=== PATIENT | female | born 2000 | race American Indian/Alaskan Native ===

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

== ENCOUNTER 2022-05-16 17:01 | Emergency (ER) | payer MEDICAID ==
[2022-05-16] MEDS ORDERED: levETIRAcetam 1000 MG/NS 0.75% 1,000 MG/100 ML BAG IV ONE (17:32)
[2022-05-16] MEDS ORDERED: KETOROLAC 30 MG/1 ML INJ IV ONE (17:34)
--- NOTE | 2022-05-16 17:35 | Emergency Department Report ---
ED Seizure HPI - General Chief Complaint: Seizure Stated Complaint: SEIZURE Time Seen by Provider: 05/16/22 17:24 Source: EMS Mode of arrival: Stretcher Limitations: No Limitations - History of Present Illness Initial Comments: 22-year-old female with a past medical history of seizures, developmental delay, and mood disorder since February 2022 presents to the hospital after having a seizure. Patient states she was cleaning the floor when she felt lightheaded and then has subsequent seizure activity. She denies tongue biting and complains of possible urinary incontinence. 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 Patient was prescribed Keppra after her initial seizures. She is noncompliant with the medication because it makes her feel drowsy. She has her first neurology appointment scheduled in 3 days on the . Patient denies taking any other medications currently, denies alcohol and substance abuse. - Related Data Previous Rx's Medication Instructions Recorded Last Taken Type Ferrous Sulfate [Ferrous Sulfate 324 mg PO DAILY #30 tab 05/16/22 Unknown Rx 324 MG] Allergies Allergy/AdvReac Type Severity Reaction Status Date / Time amoxicillin Allergy Hives Verified 08/16/19 15:36 ED Review of Systems ROS: Stated complaint: SEIZURE Other details as noted in HPI Comment: All other systems reviewed and negative ED Past Medical Hx - Past Medical History Previous Medical History?: Yes Hx Seizures: Yes - Surgical History Past Surgical History?: No Additional Surgical History: glass removed out of thigh - Social History Smoking Status: Never Smoker Substance Use Type: None - Medications Home Medications: Home Medications Medication Instructions Recorded Confirmed Last Taken Type Ferrous Sulfate [Ferrous Sulfate 324 mg PO DAILY #30 tab 05/16/22 Unknown Rx 324 MG] ED Physical Exam - General Limitations: No Limitations - Other Other exam information: General: No acute distress Head: Atraumatic Eyes: normal appearance ENT: Moist mucous membranes Neck: Normal appearance, no midline tenderness Chest: Clear to auscultation bilaterally CV: Regular rate and rhythm Abdomen: Soft, normal bowel sounds, nontender, nondistended, no rebound or guarding Back: Normal inspection Extremity: Normal inspection, full range of motion Neuro: Alert O x 3, no facial asymmetry, speech clear, no gross motor sensory deficit Psych: Appropriate behavior Skin: No rash ED Course Vital Signs 05/16/22 05/16/22 05/16/22 17:17 18:06 18:14 Temperature 98.6 F Pulse Rate 85 Respiratory 18 Rate Blood Pressure 104/52 [Left] O2 Sat by Pulse 99 96 Oximetry 05/16/22 18:52 Temperature Pulse Rate 56 L Respiratory 16 Rate Blood Pressure 83/43 [Left] O2 Sat by Pulse 100 Oximetry - Reevaluation(s) Reevaluation #1: 05/16/22 20:02 Patient states she is ready to go home. Able to ambulate without lightheadedness or dizziness. Patient did have mild hypotension which improved after normal saline. BP currently 107/58, heart rate 74, room air saturation 96%. Patient will be discharged as requested. ED Medical Decision Making - Lab Data Result diagrams: 05/16/22 17:37 05/16/22 17:37 Lab Results 05/16/22 05/16/22 05/16/22 Range/Units 17:37 17:37 17:37 WBC 8.2 (4.5-11.0) K/mm3 RBC 3.62 L (3.65-5.03) M/mm3 Hgb 8.1 L (10.1-14.3) gm/dl Hct 26.3 L (30.3-42.9) % MCV 73 L (79-97) fl MCH 22 L (28-32) pg MCHC 31 (30-34) % RDW 18.7 H (13.2-15.2) % Plt Count 330 (140-440) K/mm3 Lymph % (Auto) 15.5 (13.4-35.0) % Geary % (Auto) 5.8 (0.0-7.3) % Eos % (Auto) 0.5 (0.0-4.3) % Baso % (Auto) 0.3 (0.0-1.8) % Lymph # (Auto) 1.3 (1.2-5.4) K/mm3 Geary # (Auto) 0.5 (0.0-0.8) K/mm3 Eos # (Auto) 0.0 (0.0-0.4) K/mm3 Baso # (Auto) 0.0 (0.0-0.1) K/mm3 Seg Neutrophils % 77.9 H (40.0-70.0) % Seg Neutrophils # 6.4 (1.8-7.7) K/mm3 Sodium 143 (137-145) mmol/L Potassium 4.0 (3.6-5.0) mmol/L Chloride 107.2 H (98-107) mmol/L Carbon Dioxide 26 (22-30) mmol/L Anion Gap 14 mmol/L BUN 8 (7-17) mg/dL Creatinine 0.7 (0.6-1.2) mg/dL Estimated GFR > 60 ml/min BUN/Creatinine Ratio 11 % Glucose 91 (65-100) mg/dL POC Glucose (70-105) mg/dL Calcium 9.3 (8.4-10.2) mg/dL Magnesium 1.80 (1.7-2.3) mg/dL HCG, Qual Negative (Negative) 05/16/22 Range/Units 18:16 WBC (4.5-11.0) K/mm3 RBC (3.65-5.03) M/mm3 Hgb (10.1-14.3) gm/dl Hct (30.3-42.9) % MCV (79-97) fl MCH (28-32) pg MCHC (30-34) % RDW (13.2-15.2) % Plt Count (140-440) K/mm3 Lymph % (Auto) (13.4-35.0) % Geary % (Auto) (0.0-7.3) % Eos % (Auto) (0.0-4.3) % Baso % (Auto) (0.0-1.8) % Lymph # (Auto) (1.2-5.4) K/mm3 Geary # (Auto) (0.0-0.8) K/mm3 Eos # (Auto) (0.0-0.4) K/mm3 Baso # (Auto) (0.0-0.1) K/mm3 Seg Neutrophils % (40.0-70.0) % Seg Neutrophils # (1.8-7.7) K/mm3 Sodium (137-145) mmol/L Potassium (3.6-5.0) mmol/L Chloride (98-107) mmol/L Carbon Dioxide (22-30) mmol/L Anion Gap mmol/L BUN (7-17) mg/dL Creatinine (0.6-1.2) mg/dL Estimated GFR ml/min BUN/Creatinine Ratio % Glucose (65-100) mg/dL POC Glucose 83 (70-105) mg/dL Calcium (8.4-10.2) mg/dL Magnesium (1.7-2.3) mg/dL HCG, Qual (Negative) - EKG Data -: EKG Interpreted by Me EKG shows normal: sinus rhythm, intervals (QTC 396), QRS complexes (QRS duration 79), ST-T waves (No STEMI) Rate: bradycardia (58) - Medical Decision Making 22-year-old female presents to the hospital status postseizure. Noncompliant with seizure medications. Patient does have adequate seizure medication at home. ED work-up including labs and EKG are unremarkable with exception of mild anemia. Mild hypotension noted but improved with IV fluids. She has a scheduled outpatient follow-up with neurology next week.. Iron tablets will be prescribed for microcytic anemia Critical Care Time: No Critical care attestation.: If time is entered above; I have spent that time in minutes in the direct care of this critically ill patient, excluding procedure time. ED Disposition Clinical Impression: Seizure, Hx of medication noncompliance, Microcytic anemia Disposition: 01 HOME / SELF CARE / HOMELESS Is pt being admited?: No Does the pt Need Aspirin: No Condition: Stable Instructions: Seizure, Adult, Preventing Iron Deficiency Anemia, Adult Additional Instructions: Take the medication as prescribed. Follow-up with your doctor or doctor/clinic provided. Return if symptoms worsen as indicated by your discharge instructions. Continue your seizure medication Prescriptions: Ferrous Sulfate [Ferrous Sulfate 324 MG] 324 mg PO DAILY #30 tab Referrals: [facility] [Provider Group] - 3-5 Days ROSY GARZA MD [Staff Physician] - 3-5 Days Time of Disposition: 20:06
[2022-05-16 18:09] LABS: Basophils % (Auto) 0.3 % (0.0-1.8); Eosinophils % (Auto) 0.5 % (0.0-4.3); Hematocrit 26.3 % (30.3-42.9); Hemoglobin 8.1 gm/dl (10.1-14.3); Lymphocytes # (Auto) 1.3 K/mm3 (1.2-5.4); Lymphocytes % (Auto) 15.5 % (13.4-35.0); Mean Corpuscular HGB Conc 31 % (30-34); Mean Corpuscular Volume 73 fl (79-97); Monocytes # (Auto) 0.5 K/mm3 (0.0-0.8); Monocytes % (Auto) 5.8 % (0.0-7.3); Platelet Count 330 K/mm3 (140-440); Red Blood Count 3.62 M/mm3 (3.65-5.03); Red Cell Distribution Width 18.7 % (13.2-15.2)
[2022-05-16 18:33] LABS: Blood Urea Nitrogen 8 mg/dL (7-17); Calcium 9.3 mg/dL (8.4-10.2); Hemolysis Index 0
[2022-05-16] MEDS ORDERED: SODIUM CHLORIDE 0.9% 1000 ML 1,000 ML ONE (18:52)
[2022-05-16 18:53] VITALS: BP 83/43
[2022-05-16] MEDS ORDERED: SODIUM CHLORIDE 0.9% 1000 ML 1,000 ML IV ONE (18:57)
[2022-05-16 18:58] LABS: BUN/Creatinine Ratio 11
[2022-05-16 20:47] LABS: Amphetamine Screen,Urine PRESUMPTIVE NEGATIVE; Benzodiazepines Screen,Urine PRESUMPTIVE NEGATIVE; Cannabinoid Screen,Urine PRESUMPTIVE POSITIVE; Cocaine Screen,Urine PRESUMPTIVE NEGATIVE; Methadone Screen,Urine PRESUMPTIVE NEGATIVE; Opiate Screen,Urine PRESUMPTIVE NEGATIVE
--- NOTE | 2022-05-18 10:41 | Electrocardiograph Report ---
[facility] Test Date: 2022-05-16 Test Time: 18:20:31 Pat Name: MIGUEL ANGEL COHEN Department: Room: Gender: F General Manager In Training: CONSUELO : 2000 Requested By: PAUL CASSIDY Order Number: [id number] Reading MD: Yesenia Coulter Measurements Intervals [place] Rate: 58 P: 32 UT: 154 QRS: 79 QRSD: 79 T: 31 QT: 401 QTc: 396 Interpretive Statements Sinus rhythm No previous ECG available for comparison Electronically Signed On 05-18-2022 10:41:13 EDT by Yesenia Coulter
== END 2022-05-16 20:50 | disposition home or self-care (01) ==
LOC: ED 17:01
DX: R56.9 Unspecified convulsions (principal); Z91.14 Patient's other noncompliance with medication regimen; D50.9 Iron deficiency anemia, unspecified; Z98.890 Other specified postprocedural states; Z88.1 Allergy status to other antibiotic agents
CPT/HCPCS: 36415; 80048; 80307; 82962; 83735; 84703; 85025; 93005; 96361; 96374; 96375; 99284; J1885; J1953; J7030

== ENCOUNTER 2022-06-20 11:07 | Emergency (ER) | payer MEDICAID | END 2022-06-21 07:58 | disposition left against medical advice (07) | LOC: ED 11:07 | DX: J03.90 Acute tonsillitis, unspecified (principal); Z53.21 Procedure and treatment not carried out due to patient leaving prior to being seen by health care provider ==

== ENCOUNTER 2022-06-20 19:19 | Inpatient (IN) | payer MEDICAID ==
[2022-06-20] MEDS ORDERED: ACETAMINOPHEN 325 MG/10.15 ML ORAL LIQD UNIT DOSE PO ONE (20:30)
[2022-06-20] MEDS ORDERED: levETIRAcetam 1000 MG/NS 0.75% 1,000 MG/100 ML BAG IV ONE (20:30)
--- NOTE | 2022-06-20 20:33 | Event Note ---
Date: 06/20/22 Medical screening examination note: 22-year-old female with history of possible developmental delay and possible seizure, presents to the department today with a complaint of sore throat, not eating or drinking much, and possibly losing consciousness while preparing food. She does not know she is . She is awake, phonating in complete sentences, without stridor. She is tachycardic and hemodynamically stable. She is moving 4 extremities. She reports that she vapes, and recently had a urine drug screen which is positive for marijuana. Check EKG, appropriate laboratory studies, rapid strep, treat supportively and symptomatically, obtain noncontrast CT scan of the brain for fall, closed head injury, and probable concussion. Detailed history and physical to be performed by oncoming provider Vital Signs 06/20/22 06/20/22 06/20/22 19:20 20:13 20:18 Temperature 98.2 F 103.1 F H Pulse Rate 124 H 130 H Respiratory 18 16 Rate Blood Pressure 127/89 Blood Pressure 116/68 [Left] O2 Sat by Pulse 99 97 98 Oximetry
[2022-06-20] MEDS ORDERED: SODIUM CHLORIDE 0.9% 1000 ML 1,000 ML IV ONE ×2 (20:42→21:02)
[2022-06-20] MEDS ORDERED: KETOROLAC 30 MG/1 ML INJ IV ONE (21:02)
[2022-06-20] MEDS ORDERED: CLINDAMYCIN 600 MG/50 mL 600 MG/50 ML BAG IV ONE (21:03)
[2022-06-20 21:23] LABS: Hematocrit 26.3 % (30.3-42.9); Mean Corpuscular HGB Conc 30 % (30-34); Mean Corpuscular Volume 72 fl (79-97); Platelet Count 267 K/mm3 (140-440); Red Blood Count 3.64 M/mm3 (3.65-5.03); Red Cell Distribution Width 18.3 % (13.2-15.2)
[2022-06-20 21:37] LABS: INR 1.09 (0.87-1.13)
[2022-06-20 21:43] LABS: Blood Urea Nitrogen 7 mg/dL (7-17); Calcium 8.8 mg/dL (8.4-10.2); Hemolysis Index 144
[2022-06-20 21:44] LABS: BUN/Creatinine Ratio 14
--- NOTE | 2022-06-20 21:52 | Cat Scan Report ---
CT HEAD WITHOUT CONTRAST INDICATION / CLINICAL INFORMATION: Closed head injury, concussion. TECHNIQUE: All CT scans at this location are performed using CT dose reduction for ALARA by means of automated exposure control. COMPARISON: CT dated 01/14/19 FINDINGS: HEMORRHAGE: None. EXTRA-AXIAL SPACES: Normal in size and morphology for the patient's age. VENTRICULAR SYSTEM: Normal in size and morphology for the patient's age. CEREBRAL PARENCHYMA: No significant abnormality. No acute territorial infarct. MIDLINE SHIFT / HERNIATION: None. CEREBELLUM / BRAINSTEM: No significant abnormality. ORBITS: Normal as visualized. SOFT TISSUES: No significant abnormality. SKULL: No significant abnormality. PARANASAL SINUSES / MASTOID AIR CELLS: Normal as visualized. ADDITIONAL FINDINGS: None. IMPRESSION: 1. No acute intracranial abnormality. Signer Name: Galen Busch MD Signed: 06/20/2022 9:48 PM Workstation Name: [id number]
[2022-06-20 22:01] LABS: HCG,Quantitative < 2 mIU/mL (0-4)
[2022-06-20] MEDS ORDERED: dexAMETHasone 20 MG/5 ML VIAL IV ONE (23:10)
--- NOTE | 2022-06-20 23:23 | Cat Scan Report ---
CT NECK WITH CONTRAST INDICATION: throat pain, infection COMPARISON: CT head without contrast performed today and on 01/14/2019. TECHNIQUE: Axial, coronal and sagittal CT imaging was performed through the neck after injection of 1 00 cc Omnipaque [address] scans at this location are performed using CT dose reduction for ALARA by means of automated exposure control. FINDINGS: Skull Base: No significant abnormality. Nasopharynx, oropharynx, hypopharynx: The tonsils are enlarged with mild mass effect on the oropharyn x. No other significant abnormality. Tonsils: The tonsils are enlarged with mild mass effect on the oropharynx. There is an area of decrea sed attenuation within the right tonsil measuring 2.1 x 2.1 cm that could represent an evolving absce ss on image 36 of series 2. Airway: Patent and without significant abnormality. Salivary glands: No significant abnormality. Thyroid:No significant abnormality. Lymphatics: No lymphadenopathy. Vasculature: No significant abnormality. Osseous Structures: No significant abnormality Additional findings: None. IMPRESSION: CT evidence of tonsillitis with a possible evolving right tonsillar abscess. Signer Name: Jorge Connor MD Signed: 06/20/2022 11:19 PM Workstation Name: [id number]
--- NOTE | 2022-06-20 23:56 | Emergency Department Report ---
ED ENT HPI - General Chief complaint: Syncope Stated complaint: LIGHT HEADED Time Seen by Provider: 06/20/22 20:38 Source: patient, EMS Mode of arrival: Stretcher Limitations: No Limitations - History of Present Illness Initial comments: 22-year-old female presents to the hospital with syncopal episode and sore throat and fever for the last 3 days with decreased p.o. intake. Patient also planes of headache for several days that started prior to head injury with syncopal episode. She denies posterior neck pain, chest pain, nausea, vomiting, abdominal pain, or difficulty swallowing secretions. Pain is constant, moderate to severe in intensity and worse with swallowing. No alleviating factors reported. Patient presents febrile and tachycardic - Related Data Previous Rx's Medication Instructions Recorded Last Taken Type Ferrous Sulfate [Ferrous Sulfate 324 mg PO DAILY #30 tab 05/16/22 Unknown Rx 324 MG] Allergies Allergy/AdvReac Type Severity Reaction Status Date / Time amoxicillin Allergy Hives Verified 08/16/19 15:36 ED Dental HPI - General Chief complaint: Syncope Stated complaint: LIGHT HEADED Time Seen by Provider: 06/20/22 20:38 Source: patient, EMS Mode of arrival: Stretcher Limitations: No Limitations - Related Data Previous Rx's Medication Instructions Recorded Last Taken Type Ferrous Sulfate [Ferrous Sulfate 324 mg PO DAILY #30 tab 05/16/22 Unknown Rx 324 MG] Allergies Allergy/AdvReac Type Severity Reaction Status Date / Time amoxicillin Allergy Hives Verified 08/16/19 15:36 ED Review of Systems ROS: Stated complaint: LIGHT HEADED Other details as noted in HPI Comment: All other systems reviewed and negative ED Past Medical Hx - Past Medical History Previous Medical History?: Yes Hx Seizures: Yes Additional medical history: childbirth - Surgical History Past Surgical History?: Yes Additional Surgical History: glass removed out of thigh - Social History Smoking Status: Never Smoker Substance Use Type: None - Medications Home Medications: Home Medications Medication Instructions Recorded Confirmed Last Taken Type Ferrous Sulfate [Ferrous Sulfate 324 mg PO DAILY #30 tab 05/16/22 Unknown Rx 324 MG] ED Physical Exam - General Limitations: No Limitations - Other Other exam information: General: No acute distress Head: Atraumatic Eyes: normal appearance ENT: Dry mucous membranes, bilateral tonsillar edema with exudates noted on right tonsil Neck: Normal appearance, no midline tenderness, no stridor or drooling Chest: Clear to auscultation bilaterally CV: Tachycardic regular rhythm Abdomen: Soft, normal bowel sounds, nontender, nondistended, no rebound or guarding Back: Normal inspection Extremity: Normal inspection, full range of motion Neuro: Alert O x 3, no facial asymmetry, speech clear, no gross motor sensory deficit Psych: Appropriate behavior Skin: No rash ED Course Vital Signs 06/20/22 06/20/22 06/20/22 19:20 20:13 20:17 Temperature 98.2 F 103.1 F H Pulse Rate 124 H 130 H 134 H Respiratory 18 16 29 H Rate Blood Pressure 127/89 Blood Pressure 116/68 [Left] O2 Sat by Pulse 99 97 100 Oximetry 06/20/22 06/20/22 06/20/22 20:18 20:30 20:46 Temperature Pulse Rate 129 H 133 H Respiratory 32 H 16 Rate Blood Pressure 112/66 112/66 Blood Pressure [Left] O2 Sat by Pulse 98 100 Oximetry 06/20/22 06/20/22 06/20/22 21:00 21:15 21:40 Temperature Pulse Rate 136 H 127 H 127 H Respiratory 19 24 27 H Rate Blood Pressure 107/65 113/57 Blood Pressure [Left] O2 Sat by Pulse 99 99 99 Oximetry 06/20/22 06/20/22 06/20/22 21:46 22:00 22:16 Temperature Pulse Rate 124 H 116 H 113 H Respiratory Rate Blood Pressure Blood Pressure [Left] O2 Sat by Pulse 99 100 100 Oximetry 06/20/22 06/20/22 06/20/22 22:30 22:39 22:45 Temperature 98.9 F Pulse Rate 110 H 103 H Respiratory Rate Blood Pressure 113/57 92/41 Blood Pressure [Left] O2 Sat by Pulse 100 98 Oximetry 06/20/22 23:32 Temperature Pulse Rate 88 Respiratory 16 Rate Blood Pressure Blood Pressure 91/48 [Left] O2 Sat by Pulse 99 Oximetry - Consultations Consultation #1: 06/20/22 23:[address] Billy ENT doctor operations representative with [facility]. He was able to revi ew patient's images and thinks that area in question is likely secondary to a phlegmon since it lacks ring enhancement of a definitive abscess. Recommends IV antibiotics, Decadron, with expected improvement in 24 to 36 hours. He does not recommend transfer and aspiration at this time. If symptoms worsen or abscess develops patient may require transfer at that time. Patient will be admitted here for treatment. ED Medical Decision Making - Lab Data Result diagrams: 06/20/22 20:49 06/20/22 20:49 Lab Results 06/20/22 06/20/22 06/20/22 Range/Units 20:49 20:49 20:49 WBC 13.1 H (4.5-11.0) K/mm3 RBC 3.64 L (3.65-5.03) M/mm3 Hgb 8.0 L (10.1-14.3) gm/dl Hct 26.3 L (30.3-42.9) % MCV 72 L (79-97) fl MCH 22 L (28-32) pg MCHC 30 (30-34) % RDW 18.3 H (13.2-15.2) % Plt Count 267 (140-440) K/mm3 PT (12.2-14.9) Sec. INR (0.87-1.13) Sodium 133 L (137-145) mmol/L Potassium 4.7 (3.6-5.0) mmol/L Chloride 99.5 (98-107) mmol/L Carbon Dioxide 22 (22-30) mmol/L Anion Gap 16 mmol/L BUN 7 (7-17) mg/dL Creatinine 0.5 L (0.6-1.2) mg/dL Estimated GFR > 60 ml/min BUN/Creatinine Ratio 14 % Glucose 80 (65-100) mg/dL Calcium 8.8 (8.4-10.2) mg/dL TSH 0.508 (0.270-4.200) mlU/mL Free T4 0.90 (0.76-1.46) ng/dL HCG, Quant < 2 (0-4) mIU/mL Plasma/Serum Alcohol (0-0.07) % 06/20/22 06/20/22 Range/Units 20:49 20:49 WBC (4.5-11.0) K/mm3 RBC (3.65-5.03) M/mm3 Hgb (10.1-14.3) gm/dl Hct (30.3-42.9) % MCV (79-97) fl MCH (28-32) pg MCHC (30-34) % RDW (13.2-15.2) % Plt Count (140-440) K/mm3 PT 15.3 H (12.2-14.9) Sec. INR 1.09 (0.87-1.13) Sodium (137-145) mmol/L Potassium (3.6-5.0) mmol/L Chloride (98-107) mmol/L Carbon Dioxide (22-30) mmol/L Anion Gap mmol/L BUN (7-17) mg/dL Creatinine (0.6-1.2) mg/dL Estimated GFR ml/min BUN/Creatinine Ratio % Glucose (65-100) mg/dL Calcium (8.4-10.2) mg/dL TSH (0.270-4.200) mlU/mL Free T4 (0.76-1.46) ng/dL HCG, Quant (0-4) mIU/mL Plasma/Serum Alcohol < 0.01 (0-0.07) % - EKG Data -: EKG Interpreted by Nh EKG shows normal: sinus rhythm, ST-T waves (no stemi) Rate: normal (97) - Radiology Data Radiology results: report reviewed CT HEAD WITHOUT CONTRAST INDICATION / CLINICAL INFORMATION: Closed head injury, concussion. TECHNIQUE: All CT scans at this location are performed using CT dose reduction for [employer] by means of automated exposure control. COMPARISON: CT dated 01/14/19 FINDINGS: HEMORRHAGE: None. EXTRA-AXIAL SPACES: Normal in size and morphology for the patient's age. VENTRICULAR SYSTEM: Normal in size and morphology for the patient's age. CEREBRAL PARENCHYMA: No significant abnormality. No acute territorial infarct. MIDLINE SHIFT / HERNIATION: None. CEREBELLUM / BRAINSTEM: No significant abnormality. ORBITS: Normal as visualized. SOFT TISSUES: No significant abnormality. SKULL: No significant abnormality. PARANASAL SINUSES / MASTOID AIR CELLS: Normal as visualized. ADDITIONAL FINDINGS: None. IMPRESSION: 1. No acute intracranial abnormality. CT NECK WITH CONTRAST INDICATION: throat pain, infection COMPARISON: CT head without contrast performed today and on 01/14/2019. TECHNIQUE: Axial, coronal and sagittal CT imaging was performed through the neck after injection of 100 cc Omnipaque [address] scans at this location are performed using CT dose reduction for ALARA by means of automated exposure control. FINDINGS: Skull Base: No significant abnormality. Nasopharynx, oropharynx, hypopharynx: The tonsils are enlarged with mild mass effect on the oropharynx. No other significant abnormality. Tonsils: The tonsils are enlarged with mild mass effect on the oropharynx. There is an area of decreased attenuation within the right tonsil measuring 2.1 x 2.1 cm that could represent an evolving abscess on image 36 of series 2. Airway: Patent and without significant abnormality. Salivary glands: No significant abnormality. Thyroid:No significant abnormality. Lymphatics: No lymphadenopathy. Vasculature: No significant abnormality. Osseous Structures: No significant abnormality Additional findings: None. IMPRESSION: CT evidence of tonsillitis with a possible evolving right tonsillar abscess. - Medical Decision Making 22-year-old female presents to the hospital syncopal episode likely secondary to poor p.o. intake due to throat pain secondary to tonsillitis with early abscess/phlegmon. Patient's tachycardia improved with IV normal saline. Patient received clindamycin, Decadron, Tylenol, and Toradol in the ED with improvement in symptoms. Case discussed with ENT doctor on-call at [facility] with recommendation for admission for IV antibiotics and steroids with continued IV hydration. Does not recommend transfer and needle aspiration at this time due to lack of definitive abscess. Patient is also noted to be anemic with hemoglobin of 8 at this time. EKG and CT head unremarkable. No airway compromise identified on CAT scan and patient is able to swallow (although painful) and handle secretions. patient will be admitted to the hospital service for further treatment Critical Care Time: No Critical care attestation.: If time is entered above; I have spent that time in minutes in the direct care of this critically ill patient, excluding procedure time. ED Disposition Clinical Impression: Acute infective tonsillitis, Tonsillitis, phlegmonous, Dehydration, Syncope Disposition: ADMITTED INPATIENT Is pt being admited?: Yes Condition: Stable Instructions: Syncope (ED) Time of Disposition: 00:00 (DR becker/hosptialist)
[2022-06-21] MEDS ORDERED: SODIUM CHLORIDE 0.9% 1000 ML 1,000 ML IV ONE (00:01)
[2022-06-21] MEDS ORDERED: MORPHINE 4 MG/1 ML INJ IV PRN (04:20)
[2022-06-21] MEDS ORDERED: ALBUTEROL 2.5 MG/3 ML NEBU IH PRN (04:20)
[2022-06-21] MEDS ORDERED: ACETAMINOPHEN 325 MG TAB PO PRN (04:20)
[2022-06-21] MEDS ORDERED: ONDANSETRON 4 MG/2 ML INJ IV PRN (04:20)
[2022-06-21] MEDS ORDERED: MORPHINE 2 MG/1 ML INJ IV PRN (04:20)
[2022-06-21] MEDS ORDERED: AZITHROMYCIN/NS 500 MG/250 ML 500 MG/250 ML BAG IV SCH (04:23)
--- NOTE | 2022-06-21 04:29 | History and Physical Report ---
History of Present Illness Date of examination: 06/21/22 Date of admission: 06/21/22 Chief complaint: Syncope History of present illness: 22-year-old female presents to the hospital with syncopal episode and sore throat and fever for the last 3 days with decreased p.o. intake. Patient also planes of headache for several days that started prior to head injury with syncopal episode. She denies posterior neck pain, chest pain, nausea, vomiting, abdominal pain, or difficulty swallowing secretions. Pain is constant, moderate to severe in intensity and worse with swallowing. No alleviating factors reported. Patient presents febrile and tachycardic In the emergency room CT scan of the neck shows evidence of tonsillitis with a possible developing right tonsillar abscess. Subsequently ER doctor Case discussed with Dr. Billy ENT doctor campus receptionist with [place]. He was able to review patient's images and thinks that area in question is likely secondary to a phlegmon since it lacks ring enhancement of a definitive abscess. Recommends IV antibiotics, Decadron, with expected improvement in 24 to 36 hours. He does not recommend transfer and aspiration at this time. If symptoms worsen or abscess develops patient may require transfer at that time. Patient will be admitted here for treatment. Past History Past Medical History: seizures, other (Childbirth) Past Surgical History: Other (glass removed out of thigh) Social history: no significant social history Medications and Allergies Allergies Allergy/AdvReac Type Severity Reaction Status Date / Time amoxicillin Allergy Hives Verified 08/16/19 15:36 Home Medications Medication Instructions Recorded Confirmed Last Taken Type Ferrous Sulfate [Ferrous Sulfate 324 mg PO DAILY #30 tab 05/16/22 Unknown Rx 324 MG] Active Meds: Active Medications Acetaminophen (Acetaminophen 325 Mg Tab) 650 mg PO Q4H PRN PRN Reason: Pain MILD(1-3)/Fever >100.5/CARPENTER Albuterol (Albuterol 2.5 Mg/3 Ml Nebu) 2.5 mg IH Q3HRT PRN PRN Reason: Shortness Of Breath Albuterol/Ipratropium (Ipratropium/Albuterol Sulfate 3 Ml Ampul.Neb) 1 ampul IH Q6HRT SPENSER Famotidine (Famotidine 20 Mg/2 Ml Inj) 20 mg IV BID SPENSER Dextrose/Sodium Chloride (D5/0.45ns) 1,000 mls @ 100 mls/hr IV DIRECT SPENSER Morphine Sulfate (Morphine 4 Mg/1 Ml Inj) 4 mg IV Q4H PRN PRN Reason: Pain , Severe (7-10) Morphine Sulfate (Morphine 2 Mg/1 Ml Inj) 2 mg IV Q4H PRN PRN Reason: Pain, Moderate (4-6) Ondansetron HCl (Ondansetron 4 Mg/2 Ml Inj) 4 mg IV Q8H PRN PRN Reason: Nausea And Vomiting Sodium Chloride (Sodium Chloride 0.9% 10 Ml Flush Syringe) 10 ml IV BID SPENSER Sodium Chloride (Sodium Chloride 0.9% 10 Ml Flush Syringe) 10 ml IV PRN PRN PRN Reason: LINE FLUSH Review of Systems All systems: negative Constitutional: fatigue, malaise, other (Syncope, lightheaded) Exam - Constitutional Vitals: Temp Pulse Resp BP Pulse Ox 98.9 F 91 H 19 105/69 100 06/20/22 22:39 06/21/22 03:45 06/21/22 03:45 06/21/22 03:45 06/21/22 03:45 General appearance: Present: no acute distress, well-nourished - EENT Eyes: Present: PERRL ENT: hearing intact, oropharyngeal erythema, other (Tonsillitis) - Neck Neck: Present: supple, normal ROM - Respiratory Respiratory effort: normal Respiratory: bilateral: CTA - Cardiovascular Heart Sounds: Present: S1 & S2. Absent: rub, click - Extremities Extremities: pulses symmetrical, No edema Peripheral Pulses: within normal limits - Abdominal General gastrointestinal: Present: soft, non-tender, non-distended, normal bowel sounds Female genitourinary: Present: normal - Integumentary Integumentary: Present: clear, warm, dry - Musculoskeletal Musculoskeletal: gait normal, strength equal bilaterally - Psychiatric Psychiatric: appropriate mood/affect, intact judgment & insight - Neurologic Neurologic: CNII-XII intact, moves all extremities Results - Labs CBC & Chem 7: 06/20/22 20:49 06/20/22 20:49 Labs: Laboratory Last Values WBC 13.1 K/mm3 (4.5-11.0) H 06/20/22 20:49 RBC 3.64 M/mm3 (3.65-5.03) L 06/20/22 20:49 Hgb 8.0 gm/dl (10.1-14.3) L 06/20/22 20:49 Hct 26.3 % (30.3-42.9) L 06/20/22 20:49 MCV 72 fl (79-97) L 06/20/22 20:49 MCH 22 pg (28-32) L 06/20/22 20:49 MCHC 30 % (30-34) 06/20/22 20:49 RDW 18.3 % (13.2-15.2) H 06/20/22 20:49 Plt Count 267 K/mm3 (140-440) 06/20/22 20:49 PT 15.3 Sec. (12.2-14.9) H 06/20/22 20:49 INR 1.09 (0.87-1.13) 06/20/22 20:49 Sodium 133 mmol/L (137-145) L 06/20/22 20:49 Potassium 4.7 mmol/L (3.6-5.0) 06/20/22 20:49 Chloride 99.5 mmol/L (98-107) 06/20/22 20:49 Carbon Dioxide 22 mmol/L (22-30) 06/20/22 20:49 Anion Gap 16 mmol/L 06/20/22 20:49 BUN 7 mg/dL (7-17) 06/20/22 20:49 Creatinine 0.5 mg/dL (0.6-1.2) L 06/20/22 20:49 Estimated GFR > 60 ml/min 06/20/22 20:49 BUN/Creatinine Ratio 14 % 06/20/22 20:49 Glucose 80 mg/dL (65-100) 06/20/22 20:49 Calcium 8.8 mg/dL (8.4-10.2) 06/20/22 20:49 TSH 0.508 mlU/mL (0.270-4.200) 06/20/22 20:49 Free T4 0.90 ng/dL (0.76-1.46) 06/20/22 20:49 HCG, Quant < 2 mIU/mL (0-4) 06/20/22 20:49 Plasma/Serum Alcohol < 0.01 % (0-0.07) 06/20/22 20:49 Group A Strep Rapid Negative (Negative) 06/20/22 Unknown - Imaging and Cardiology CT Scan - head: report reviewed Assessment and Plan VTE prophylaxis?: Chemical Plan of care discussed with patient/family: Yes - Patient Problems (1) Acute infective tonsillitis Current Visit: Yes Status: Acute Plan to address problem: Admit the patient to the medical telemetry. NPO. D5 half-normal saline at the rate of 100 cc/h. Oxygen via nasal cannula 3 L/min. Clindamycin 600 mg IV every 8 hours. Zithromax 500 mg IV daily. Throat culture. Consult ENT if available. CBC in the morning (2) Seizure Current Visit: Yes Status: Acute Plan to address problem: Keppra 500 mg IV every 12 hours. We continue the home medication (3) Anemia Current Visit: Yes Status: Acute Plan to address problem: Stable. We will recheck the CBC in the morning. (4) Dehydration Current Visit: Yes Status: Acute Plan to address problem: D5 half-normal saline at the rate of 100 cc/h. We will recheck the BMP in the morning (5) Syncope Current Visit: Yes Status: Acute Plan to address problem: D5 half-normal saline at the rate of 100 cc/h. Clindamycin and Zithromax for tonsillitis. We will monitor the patient closely. Recheck CBC BMP in the morning (6) Tonsillitis, phlegmonous Current Visit: Yes Status: Acute Plan to address problem: NPO. D5 half-normal saline at the rate of 100 cc/h. Oxygen via nasal cannula 3 L/min. Clindamycin 600 mg IV every 8 hours. Zithromax 500 mg IV daily. Throat culture. Consult ENT if available. CBC in the morning. (7) DVT prophylaxis Current Visit: Yes Status: Acute Plan to address problem: Heparin 5000 units subcu every 12 hours for DVT prophylaxis. Pepcid 20 mg IV every 12 hours for GI prophylaxis. Patient is a full code
[2022-06-21] MEDS: D5W/0.45% NACL 1,000 ML IV SCH (06:04)
[2022-06-21] MEDS: CLINDAMYCIN 600 MG/50 mL 600 MG/50 ML BAG IV SCH ×3 (06:09→22:54)
[2022-06-21] MEDS: IPRATROPIUM/ALBUTEROL SULFATE 3 ML AMPUL.NEB IH SCH ×2 (09:12→19:09)
[2022-06-21] MEDS: FAMOTIDINE 20 MG/2 ML INJ IV SCH ×2 (09:38→22:54)
[2022-06-21] MEDS: HEPARIN 5,000 UNIT/1 ML VIAL SUB-Q SCH ×2 (09:38→22:54)
[2022-06-21] MEDS: dexAMETHasone 4 MG/ML VIAL IV SCH ×2 (09:38→17:27)
--- NOTE | 2022-06-21 10:43 | Electrocardiograph Report ---
[facility] Test Date: 2022-06-20 Test Time: 23:46:33 Pat Name: MIGUEL ANGEL COHEN Department: Room: A380 1 Gender: F Operating Engineer: LE : 2000 Requested By: PARIS HOPSON Order Number: [id number] Reading MD: Bishop Fernandez Measurements Intervals [place] Rate: 97 P: 55 OH: 155 QRS: 80 QRSD: 85 T: 35 QT: 358 QTc: 455 Interpretive Statements Sinus rhythm Compared to ECG 05/16/2022 18:20:31 No significant changes Electronically Signed On 06-21-2022 10:42:43 EDT by Bishop Fernandez
--- NOTE | 2022-06-21 20:30 | Progress Note ---
Assessment and Plan Assessment and plan: - Patient Problems (1) Acute infective tonsillitis Current Visit: Yes Status: Acute Plan to address problem: Admit the patient to the medical telemetry. NPO. D5 half-normal saline at the rate of 100 cc/h. Oxygen via nasal cannula 3 L/min. Clindamycin 600 mg IV every 8 hours. Zithromax 500 mg IV daily. Throat culture. Consult ENT if available. CBC in the morning (2) Seizure Current Visit: Yes Status: Acute Plan to address problem: Keppra 500 mg IV every 12 hours. We continue the home medication (3) Anemia Current Visit: Yes Status: Acute Plan to address problem: Stable. We will recheck the CBC in the morning. (4) Dehydration Current Visit: Yes Status: Acute Plan to address problem: D5 half-normal saline at the rate of 100 cc/h. We will recheck the BMP in the morning (5) Syncope Current Visit: Yes Status: Acute Plan to address problem: D5 half-normal saline at the rate of 100 cc/h. Clindamycin and Zithromax for tonsillitis. We will monitor the patient closely. Recheck CBC BMP in the morning (6) Tonsillitis, phlegmonous Current Visit: Yes Status: Acute Plan to address problem: NPO. D5 half-normal saline at the rate of 100 cc/h. Oxygen via nasal cannula 3 L/min. Clindamycin 600 mg IV every 8 hours. Zithromax 500 mg IV daily. Throat culture. Consult ENT if available. CBC in the morning. (7) DVT prophylaxis Current Visit: Yes Status: Acute Plan to address problem: Heparin 5000 units subcu every 12 hours for DVT prophylaxis. Pepcid 20 mg IV every 12 hours for GI prophylaxis. Patient is a full code History Interval history: I have seen and examined the patient at the bedside Patient's chart and medications reviewed Patient with tonsillitis with possible developing abscess was admitted last night Patient is on antibiotics, patient does not have any difficulty swallowing or stridor We will try clear liquids, afebrile this morning Vital signs noted Hospitalist Physical - Constitutional Vitals: Temp Pulse Resp BP Pulse Ox 97.7 F 85 18 109/60 99 06/21/22 17:16 06/21/22 17:16 06/21/22 17:16 06/21/22 17:16 06/21/22 20:13 General appearance: Present: no acute distress, well-nourished - EENT Eyes: Present: PERRL, EOM intact ENT: oropharyngeal erythema, other (Bilateral tonsillar mild edema, ) - Neck Neck: Present: supple, normal ROM - Respiratory Respiratory effort: normal Respiratory: bilateral: diminished, negative: rales, rhonchi, wheezing - Cardiovascular Rhythm: regular Heart Sounds: Present: S1 & S2 - Extremities Extremities: no ischemia, No edema - Abdominal General gastrointestinal: soft, non-tender, non-distended, normal bowel sounds - Integumentary Integumentary: Present: clear, warm - Psychiatric Psychiatric: appropriate mood/affect, cooperative - Neurologic Neurologic: CNII-XII intact, moves all extremities Results - Labs CBC & Chem 7: 06/20/22 20:49 06/20/22 20:49 Labs: Laboratory Last Values WBC 13.1 K/mm3 (4.5-11.0) H 06/20/22 20:49 RBC 3.64 M/mm3 (3.65-5.03) L 06/20/22 20:49 Hgb 8.0 gm/dl (10.1-14.3) L 06/20/22 20:49 Hct 26.3 % (30.3-42.9) L 06/20/22 20:49 MCV 72 fl (79-97) L 06/20/22 20:49 MCH 22 pg (28-32) L 06/20/22 20:49 MCHC 30 % (30-34) 06/20/22 20:49 RDW 18.3 % (13.2-15.2) H 06/20/22 20:49 Plt Count 267 K/mm3 (140-440) 06/20/22 20:49 PT 15.3 Sec. (12.2-14.9) H 06/20/22 20:49 INR 1.09 (0.87-1.13) 06/20/22 20:49 Sodium 133 mmol/L (137-145) L 06/20/22 20:49 Potassium 4.7 mmol/L (3.6-5.0) 06/20/22 20:49 Chloride 99.5 mmol/L (98-107) 06/20/22 20:49 Carbon Dioxide 22 mmol/L (22-30) 06/20/22 20:49 Anion Gap 16 mmol/L 06/20/22 20:49 BUN 7 mg/dL (7-17) 06/20/22 20:49 Creatinine 0.5 mg/dL (0.6-1.2) L 06/20/22 20:49 Estimated GFR > 60 ml/min 06/20/22 20:49 BUN/Creatinine Ratio 14 % 06/20/22 20:49 Glucose 80 mg/dL (65-100) 06/20/22 20:49 Calcium 8.8 mg/dL (8.4-10.2) 06/20/22 20:49 TSH 0.508 mlU/mL (0.270-4.200) 06/20/22 20:49 Free T4 0.90 ng/dL (0.76-1.46) 06/20/22 20:49 HCG, Quant < 2 mIU/mL (0-4) 06/20/22 20:49 Plasma/Serum Alcohol < 0.01 % (0-0.07) 06/20/22 20:49 Group A Strep Rapid Negative (Negative) 06/20/22 Unknown Mckay/IV: Voiding Method Toilet Active Medications - Current Medications Current Medications: Generic Name Dose Route Start Last Admin Trade Name Freq PRN Reason Stop Dose Admin Acetaminophen 650 mg 06/21/22 04:20 Acetaminophen 325 Mg Tab PO Q4H PRN Pain MILD(1-3)/Fever >100.5/[place] Albuterol 2.5 mg 06/21/22 04:20 Albuterol 2.5 Mg/3 Ml Nebu IH Q3HRT PRN Shortness Of Breath Dexamethasone 4 mg 06/21/22 08:00 06/21/22 17:27 Dexamethasone 4 Mg/Ml Vial IV 4 mg Q8H SPENSER Administration Famotidine 20 mg 06/21/22 10:00 06/21/22 09:38 Famotidine 20 Mg/2 Ml Inj IV 20 mg BID SPENSER Administration Heparin Sodium (Porcine) 5,000 unit 06/21/22 10:00 06/21/22 09:38 Heparin 5,000 Unit/1 Ml Vial SUB-Q 5,000 unit Q12HR SPENSER Administration Dextrose/Sodium Chloride 1,000 mls @ 100 mls/hr 06/21/22 05:00 06/21/22 06:04 D5/0.45ns IV 100 mls/hr DIRECT SPENSER Administration Clindamycin HCl 600 mg in 50 mls @ 100 mls/hr 06/21/22 05:00 06/21/22 13:45 Cleocin 600 Mg/50 Ml IV 100 mls/hr Q8H SPENSER Administration Protocol Azithromycin 500 mg in 250 mls @ 250 mls/hr 06/22/22 10:00 Zithromax/Ns IV 06/25/22 10:59 DAILY SPENSER Protocol Morphine Sulfate 4 mg 06/21/22 04:20 Morphine 4 Mg/1 Ml Inj IV Q4H PRN Pain , Severe (7-10) Morphine Sulfate 2 mg 06/21/22 04:20 Morphine 2 Mg/1 Ml Inj IV Q4H PRN Pain, Moderate (4-6) Ondansetron HCl 4 mg 06/21/22 04:20 Ondansetron 4 Mg/2 Ml Inj IV Q8H PRN Nausea And Vomiting Sodium Chloride 10 ml 06/21/22 10:00 06/21/22 09:38 Sodium Chloride 0.9% 10 Ml Flush Syringe IV 10 ml BID SPENSER Administration Sodium Chloride 10 ml 06/21/22 04:20 Sodium Chloride 0.9% 10 Ml Flush Syringe IV PRN PRN LINE FLUSH
[2022-06-22] MEDS: dexAMETHasone 4 MG/ML VIAL IV SCH ×4 (01:08→23:25)
[2022-06-22] MEDS: CLINDAMYCIN 600 MG/50 mL 600 MG/50 ML BAG IV SCH ×3 (05:13→20:56)
[2022-06-22 08:30] LABS: Hematocrit 23.5 % (30.3-42.9); Hemoglobin 7.1 gm/dl (10.1-14.3); Mean Corpuscular HGB Conc 30 % (30-34); Mean Corpuscular Volume 72 fl (79-97); Platelet Count 283 K/mm3 (140-440); Red Blood Count 3.25 M/mm3 (3.65-5.03); Red Cell Distribution Width 18.2 % (13.2-15.2)
[2022-06-22] MEDS: D5W/0.45% NACL 1,000 ML IV SCH ×2 (08:50→20:55)
[2022-06-22 08:55] LABS: Alanine Aminotransferase 7 units/L (7-56); Albumin 3.7 g/dL (3.9-5); Blood Urea Nitrogen 9 mg/dL (7-17); Calcium 8.5 mg/dL (8.4-10.2); Hemolysis Index 0
[2022-06-22 08:56] LABS: BUN/Creatinine Ratio 18; Bilirubin,Direct < 0.2 mg/dL (0-0.2)
[2022-06-22] MEDS ORDERED: MAGNESIUM HYDROXIDE (MOM) ORAL LIQD UDC PO NR (09:00)
[2022-06-22] MEDS: FAMOTIDINE 20 MG/2 ML INJ IV SCH ×2 (09:44→20:59)
[2022-06-22] MEDS: AZITHROMYCIN/NS 500 MG/250 ML 500 MG/250 ML BAG IV SCH (09:44)
[2022-06-22] MEDS: HEPARIN 5,000 UNIT/1 ML VIAL SUB-Q SCH ×3 (09:44→21:03)
[2022-06-22] MEDS ORDERED: AZITHROMYCIN 250 MG TAB PO SCH (10:00)
[2022-06-22 10:42] LABS: Basophils % (Manual) 0 % (0.0-1.8); Eosinophils % (Manual) 0 % (0.0-4.3); Hypochromasia 2+; Total Cells Counted 100
[2022-06-22 10:43] LABS: Platelet Estimate Consistent w Auto; Schistocytes Few
--- NOTE | 2022-06-22 19:01 | Progress Note ---
Assessment and Plan Assessment and plan: --Acute infective tonsillitis: Edema and inflammation of tonsils significantly improved, patient does not have any difficulty swallowing Tolerating soft diet, advance diet as tolerated, no fever, leukocytosis trending down, cultures negative to date Continue IV fluids , soft diet, advance as tolerated, continue antibiotics clindamycin 600 mg IV every 8 hrs and Zithromax 500 mg IV daily. Follow-up strep throat test, throat culture. Consult ID if worsening symptoms or positive cultures. Outpatient ENT follow-up and discharge. Currently patient is hemodynamically stable, improving improved tolerating diet No ENT service available. However ER physician contacted ENT from [place] when patient presented to the emergency room [no indication for transfer ] If patient has worsening symptoms or abscess, may contact [place] ENT transfer ED note /06/20/22 23:[address] Billy ENT doctor airborne operations with [place]. He was able to review patient's images and thinks that area in question is likely secondary to a phlegmon since it lacks ring enhancement of a definitive abscess. Recommends IV antibiotics, Decadron, with expected improvement in 24 to 36 hours. He does not recommend transfer and aspiration at this time. If symptoms worsen or abscess develops patient may require transfer at that time. Patient will be admitted here for treatment. -- Seizure: Seizure precautions, follow private neurologist upon discharge, do not drive until cleared by PMD or neurology Continue Keppra 500 mg IV every 12 hours. We continue the home medication - - Anemia Stable. Closely monitor H&H, transfuse as needed --Dehydration/resolved Continue D5 half-normal saline at the rate of 100 cc/h. Closely monitor --Syncope Fall precautions, no new episodes of syncope since admission CT head, as outpatient, with private neurologist upon DC -- Tonsillitis, phlegmonous NPO. D5 half-normal saline at the rate of 100 cc/h. Oxygen via nasal cannula 3 L/min. Clindamycin 600 mg IV every 8 hours. Zithromax 500 mg IV daily. Throat cul ture. Consult ENT [facility] if needed, as mentioned above --CODE STATUS --DVT prophylaxis: Subcu heparin, Pepcid for GI prophylaxis. DC planning per case management Discharge when medically stable Closely monitor the patient and adjust management as needed Plan of care reviewed with the patient and her nurse Brief history: 06/22/22; continue current antibiotics, advance diet as tolerated Follow leukocytes, discharge when medically stable Follow-up private neurology and ENT upon discharge History Interval history: I have seen and examined the patient this morning at the bedside Patient's chart and medications reviewed Patient slept well, had some soft diet this morning which she tolerated Denies difficulty swallowing Patient is afebrile signs are stable Hospitalist Physical - Constitutional Vitals: Temp Pulse Resp BP Pulse Ox 97.9 F 69 20 108/69 99 06/22/22 15:09 06/22/22 15:09 06/22/22 15:09 06/22/22 15:09 06/22/22 15:09 General appearance: Present: no acute distress, well-nourished - EENT Eyes: Present: PERRL, EOM intact - Neck Neck: Present: supple, normal ROM - Respiratory Respiratory effort: normal Respiratory: bilateral: diminished, negative: rales, rhonchi, wheezing - Cardiovascular Rhythm: regular Heart Sounds: Present: S1 & S2 - Extremities Extremities: no ischemia, No edema - Abdominal General gastrointestinal: soft, non-tender, non-distended, normal bowel sounds - Integumentary Integumentary: Present: clear, warm - Psychiatric Psychiatric: appropriate mood/affect, cooperative - Neurologic Neurologic: CNII-XII intact, moves all extremities Results - Labs CBC & Chem 7: 06/22/22 07:47 06/22/22 07:47 Labs: Laboratory Last Values WBC 16.5 K/mm3 (4.5-11.0) H 06/22/22 07:47 RBC 3.25 M/mm3 (3.65-5.03) L 06/22/22 07:47 Hgb 7.1 gm/dl (10.1-14.3) L 06/22/22 07:47 Hct 23.5 % (30.3-42.9) L 06/22/22 07:47 MCV 72 fl (79-97) L 06/22/22 07:47 MCH 22 pg (28-32) L 06/22/22 07:47 MCHC 30 % (30-34) 06/22/22 07:47 RDW 18.2 % (13.2-15.2) H 06/22/22 07:47 Plt Count 283 K/mm3 (140-440) 06/22/22 07:47 Add Manual Diff Complete 06/22/22 07:47 Total Counted 100 06/22/22 07:47 Seg Neutrophils % Sewer Pipe Offbearer 06/22/22 07:47 Seg Neuts % (Manual) 92.0 % (40.0-70.0) H 06/22/22 07:47 Band Neutrophils % 0 % 06/22/22 07:47 Lymphocytes % (Manual) 7.0 % (13.4-35.0) L 06/22/22 07:47 Reactive Lymphs % (Man) 0 % 06/22/22 07:47 Monocytes % (Manual) 1.0 % (0.0-7.3) 06/22/22 07:47 Eosinophils % (Manual) 0 % (0.0-4.3) 06/22/22 07:47 Basophils % (Manual) 0 % (0.0-1.8) 06/22/22 07:47 Metamyelocytes % 0 % 06/22/22 07:47 Myelocytes % 0 % 06/22/22 07:47 Promyelocytes % 0 % 06/22/22 07:47 Blast Cells % 0 % 06/22/22 07:47 Nucleated RBC % Not Reportable 06/22/22 07:47 Seg Neutrophils # Man 15.2 K/mm3 (1.8-7.7) H 06/22/22 07:47 Band Neutrophils # 0.0 K/mm3 06/22/22 07:47 Lymphocytes # (Manual) 1.2 K/mm3 (1.2-5.4) 06/22/22 07:47 Abs React Lymphs (Man) 0.0 K/mm3 06/22/22 07:47 Monocytes # (Manual) 0.2 K/mm3 (0.0-0.8) 06/22/22 07:47 Eosinophils # (Manual) 0.0 K/mm3 (0.0-0.4) 06/22/22 07:47 Basophils # (Manual) 0.0 K/mm3 (0.0-0.1) 06/22/22 07:47 Metamyelocytes # 0.0 K/mm3 06/22/22 07:47 Myelocytes # 0.0 K/mm3 06/22/22 07:47 Promyelocytes # 0.0 K/mm3 06/22/22 07:47 Blast Cells # 0.0 K/mm3 06/22/22 07:47 WBC Morphology Not Reportable 06/22/22 07:47 Hypersegmented Neuts Not Reportable 06/22/22 07:47 Hyposegmented Neuts Not Reportable 06/22/22 07:47 Hypogranular Neuts Not Reportable 06/22/22 07:47 Smudge Cells Not Reportable 06/22/22 07:47 Toxic Granulation Not Reportable 06/22/22 07:47 Toxic Vacuolation Not Reportable 06/22/22 07:47 Dohle Bodies Not Reportable 06/22/22 07:47 Pelger-Huet Anomaly Not Reportable 06/22/22 07:47 Oscar Rods Not Reportable 06/22/22 07:47 Platelet Estimate Consistent w auto 06/22/22 07:47 Clumped Platelets Not Reportable 06/22/22 07:47 Plt Clumps, EDTA Not Reportable 06/22/22 07:47 Large Platelets Not Reportable 06/22/22 07:47 Giant Platelets Not Reportable 06/22/22 07:47 Platelet Satelliting Not Reportable 06/22/22 07:47 Plt Morphology Comment Not Reportable 06/22/22 07:47 RBC Morphology Not Reportable 06/22/22 07:47 Dimorphic RBCs Not Reportable 06/22/22 07:47 Polychromasia 1+ 06/22/22 07:47 Hypochromasia 2+ 06/22/22 07:47 Poikilocytosis Not Reportable 06/22/22 07:47 Anisocytosis Not Reportable 06/22/22 07:47 Microcytosis Not Reportable 06/22/22 07:47 Macrocytosis Not Reportable 06/22/22 07:47 Spherocytes Not Reportable 06/22/22 07:47 Pappenheimer Bodies Not Reportable 06/22/22 07:47 Sickle Cells Not Reportable 06/22/22 07:47 Target Cells Not Reportable 06/22/22 07:47 Tear Drop Cells Not Reportable 06/22/22 07:47 Ovalocytes Not Reportable 06/22/22 07:47 Helmet Cells Not Reportable 06/22/22 07:47 Nichols-Thurmond Bodies Not Reportable 06/22/22 07:47 [place] Rings Not Reportable 06/22/22 07:47 [place] Cells Not Reportable 06/22/22 07:47 Bite Cells Not Reportable 06/22/22 07:47 Crenated Cell Not Reportable 06/22/22 07:47 Elliptocytes 1+ 06/22/22 07:47 Acanthocytes (Spur) Not Reportable 06/22/22 07:47 Rouleaux Not Reportable 06/22/22 07:47 Hemoglobin C Crystals Not Reportable 06/22/22 07:47 Schistocytes Few 06/22/22 07:47 Malaria parasites Not Reportable 06/22/22 07:47 Jairon Bodies Not Reportable 06/22/22 07:47 Hem Pathologist Commnt No 06/22/22 07:47 PT 15.3 Sec. (12.2-14.9) H 06/20/22 20:49 INR 1.09 (0.87-1.13) 06/20/22 20:49 Sodium 140 mmol/L (137-145) D 06/22/22 07:47 Potassium 4.3 mmol/L (3.6-5.0) 06/22/22 07:47 Chloride 106.3 mmol/L (98-107) 06/22/22 07:47 Carbon Dioxide 26 mmol/L (22-30) 06/22/22 07:47 Anion Gap 12 mmol/L 06/22/22 07:47 BUN 9 mg/dL (7-17) 06/22/22 07:47 Creatinine 0.5 mg/dL (0.6-1.2) L 06/22/22 07:47 Estimated GFR > 60 ml/min 06/22/22 07:47 BUN/Creatinine Ratio 18 % 06/22/22 07:47 Glucose 144 mg/dL (65-100) H 06/22/22 07:47 Calcium 8.5 mg/dL (8.4-10.2) 06/22/22 07:47 Total Bilirubin 0.30 mg/dL (0.1-1.2) 06/22/22 07:47 Direct Bilirubin < 0.2 mg/dL (0-0.2) 06/22/22 07:47 Indirect Bilirubin 0.1 mg/dL 06/22/22 07:47 AST 10 units/L (5-40) 06/22/22 07:47 ALT 7 units/L (7-56) 06/22/22 07:47 Alkaline Phosphatase 50 units/L (35-129) 06/22/22 07:47 Total Protein 5.6 g/dL (6.3-8.2) L 06/22/22 07:47 Albumin 3.7 g/dL (3.9-5) L 06/22/22 07:47 Albumin/Globulin Ratio 1.9 % 06/22/22 07:47 TSH 0.508 mlU/mL (0.270-4.200) 06/20/22 20:49 Free T4 0.90 ng/dL (0.76-1.46) 06/20/22 20:49 HCG, Quant < 2 mIU/mL (0-4) 06/20/22 20:49 Plasma/Serum Alcohol < 0.01 % (0-0.07) 06/20/22 20:49 Group A Strep Rapid Negative (Negative) 06/20/22 Unknown Microbiology: Microbiology 06/21/22 03:39 Throat Group A Strep Throat Culture - Preliminary 06/21/22 21:27 Peripheral/Venous Blood Culture - Preliminary Culture in Progress 06/21/22 21:27 Peripheral/Venous Blood Culture - Preliminary Culture in Progress Mckay/IV: Voiding Method Toilet Active Medications - Current Medications Current Medications: Generic Name Dose Route Start Last Admin Trade Name Freq PRN Reason Stop Dose Admin Acetaminophen 650 mg 06/21/22 04:20 Acetaminophen 325 Mg Tab PO Q4H PRN Pain MILD(1-3)/Fever >100.5/[place] Albuterol 2.5 mg 06/21/22 04:20 Albuterol 2.5 Mg/3 Ml Nebu IH Q3HRT PRN Shortness Of Breath Dexamethasone 4 mg 06/21/22 08:00 06/22/22 17:29 Dexamethasone 4 Mg/Ml Vial IV 4 mg Q8H SPENSER Administration Famotidine 20 mg 06/21/22 10:00 06/22/22 09:44 Famotidine 20 Mg/2 Ml Inj IV 20 mg BID SPENSER Administration Heparin Sodium (Porcine) 5,000 unit 06/21/22 10:00 06/22/22 09:44 Heparin 5,000 Unit/1 Ml Vial SUB-Q 5,000 unit Q12HR SPENSER Administration Dextrose/Sodium Chloride 1,000 mls @ 100 mls/hr 06/21/22 05:00 06/22/22 08:50 D5/0.45ns IV 100 mls/hr DIRECT SPENSER Administration Clindamycin HCl 600 mg in 50 mls @ 100 mls/hr 06/21/22 05:00 06/22/22 17:28 Cleocin 600 Mg/50 Ml IV 100 mls/hr Q8H SPENSER Administration Protocol Azithromycin 500 mg in 250 mls @ 250 mls/hr 06/22/22 10:00 06/22/22 09:44 Zithromax/Ns IV 06/25/22 10:59 250 mls/hr DAILY SPENSER Administration Protocol Morphine Sulfate 4 mg 06/21/22 04:20 06/21/22 23:05 Morphine 4 Mg/1 Ml Inj IV 4 mg Q4H PRN Administration Pain , Severe (7-10) Morphine Sulfate 2 mg 06/21/22 04:20 Morphine 2 Mg/1 Ml Inj IV Q4H PRN Pain, Moderate (4-6) Ondansetron HCl 4 mg 06/21/22 04:20 Ondansetron 4 Mg/2 Ml Inj IV Q8H PRN Nausea And Vomiting Sodium Chloride 10 ml 06/21/22 10:00 06/22/22 09:45 Sodium Chloride 0.9% 10 Ml Flush Syringe IV 10 ml BID SPENSER Administration Sodium Chloride 10 ml 06/21/22 04:20 Sodium Chloride 0.9% 10 Ml Flush Syringe IV PRN PRN LINE FLUSH
[2022-06-22 22:15] VITALS: BP 104/64
[2022-06-23] MEDS: CLINDAMYCIN 600 MG/50 mL 600 MG/50 ML BAG IV SCH ×2 (05:16→13:49)
[2022-06-23 05:54] LABS: Eosinophils % (Auto) 0.1 % (0.0-4.3); Hematocrit 23.6 % (30.3-42.9); Hemoglobin 7.1 gm/dl (10.1-14.3); Lymphocytes # (Auto) 1.1 K/mm3 (1.2-5.4); Lymphocytes % (Auto) 7.8 % (13.4-35.0); Mean Corpuscular HGB Conc 30 % (30-34); Mean Corpuscular Volume 72 fl (79-97); Monocytes # (Auto) 0.6 K/mm3 (0.0-0.8); Monocytes % (Auto) 4.6 % (0.0-7.3); Platelet Count 317 K/mm3 (140-440); Red Blood Count 3.28 M/mm3 (3.65-5.03); Red Cell Distribution Width 18.6 % (13.2-15.2)
[2022-06-23] MEDS: dexAMETHasone 4 MG/ML VIAL IV SCH (09:37)
[2022-06-23] MEDS: HEPARIN 5,000 UNIT/1 ML VIAL SUB-Q SCH (09:38)
[2022-06-23] MEDS: AZITHROMYCIN/NS 500 MG/250 ML 500 MG/250 ML BAG IV SCH (09:38)
[2022-06-23] MEDS ORDERED: FAMOTIDINE 20 MG TAB PO SCH (10:00)
--- NOTE | 2022-06-23 13:00 | Discharge Summary ---
Providers - Providers Date of Admission: 06/21/22 04:20 Date of discharge: 06/23/22 Attending physician: LOREN COBB Primary care physician: KATIE COLE Hospitalization Condition: Stable Hospital course: 22-year-old female with history of seizure disorder, chronic anemia with menorrhagia presents to the hospital with syncopal episode and sore throat and fever for the last 3 days with decreased p.o. intake. Patient also c/o headache for several days that started prior to head injury with syncopal episode. She denies posterior neck pain, chest pain, nausea, vomiting, abdominal pain, or difficulty swallowing secretions. In the emergency room CT scan of the neck shows evidence of tonsillitis with a possible developing right tonsillar abscess. Subsequently ER doctor Case discussed with Dr. Billy ENT doctor residential property consultant with [facility]. He was able to review patient's images and thinks that area in question is likely secondary to a phlegmon since it lacks ring enhancement of a definitive abscess. Recommends IV antibiotics, Decadron, with expected improvement in 24 to 36 hours. He does not recommend transfer and aspiration at this time. Patient was admitted for further evaluation and management. 06/22/22: No seizure-like activity, continued on home dose Keppra, empiric antibiotic. Patient improving clinically 06/23/22: Patient tolerating diet, no fever, improved white count. No seizure- like activities. Patient will be discharged home with clindamycin twice a day for total 1 week. Patient was also instructed to follow-up at [facility]. No driving until cleared by PCP. Discharge diagnosis: --Syncope likely from underlying dehydration Fall precautions, no new episodes of syncope since admission CT head, as outpatient, with private neurologist upon DC --Acute infective tonsillitis: Edema and inflammation of tonsils significantly improved, patient does not have any difficulty swallowing Tolerating soft diet, advance diet as tolerated, no fever, leukocytosis trending down, cultures negative to date continue antibiotics clindamycin 600 mg IV every 8 hrs and Zithromax 500 mg IV daily. Outpatient ENT follow-up and discharge. Currently patient is hemodynamically stable, improving improved tolerating diet --History of seizure disorder: Suspected breakthrough seizure Patient but low probability given no history of jerking limbs, tongue bites, confusion postictal Seizure precautions, follow private neurologist upon discharge, continue home dose of Keppra twice daily -Microcytic anemia due to menorrhagia Stable. Closely monitor H&H, transfuse outpatient follow-up with [facility] Hemoglobin of 7.1, patient offered for blood transfusion but she refused --Dehydration/resolved olaced on D5 half-normal saline at the rate of 100 cc/h. --CODE STATUS, full --DVT prophylaxis: Subcu heparin, Pepcid for GI prophylaxis. DC planning: DC home with outpatient follow-up Disposition: HOME / SELF CARE / HOMELESS Final Discharge Diagnosis (Prints w/discharge instructions): -- Acute tonsillitis. -- Syncope due to dehydration. --Seizure disorder. -- microcytic anmeia with menorrhagia Time spent for discharge: 34 minutes Core Measure Documentation - Palliative Care Palliative Care/ Comfort Measures: Not Applicable - Core Measures Any of the following diagnoses?: none Exam - Physical Exam Narrative exam: GENERAL: well-developed and well-nourished -[place]aro[place] female lying on bed appeared to be in no discomfort. HEENT: Normocephalic. Atraumatic. No conjunctival congestion or icterus. Patient has moist mucous membranes. NECK: Supple. Trachea midline. CHEST/LUNGS: Clear to auscultated bilaterally, breathing nonlabored. No wheezes crackles or rhonchi. HEART/CARDIOVASCULAR: Regular in rate and rhythm. S1 and S2 positive. ABDOMEN: Abdomen is soft, nontender. Patient has normal bowel sounds. SKIN: There is no rash. Warm and dry. NEURO: No focal motor deficit. Follows command. MUSCULOSKELETAL: No joint effusion or tenderness. EXTRIMITY: No edema, no cyanosis or clubbing. PSYCH: Cooperative. - Constitutional Vitals: Temp Pulse Resp BP Pulse Ox 98.2 F 56 L 18 104/64 98 06/22/22 22:14 06/22/22 22:14 06/22/22 22:52 06/22/22 22:14 06/23/22 08:54 Plan Diet: low fat, low salt Additional Instructions: Follow-up at [facility] in [address] week. No [address] until cleared by PCP Follow up with: KATIE COLE MD [Primary Care Provider] - 7 Days Prescriptions: Clindamycin [Clindamycin CAP] 600 mg PO BID #10 capsule
== END 2022-06-23 14:38 | disposition home or self-care (01) | DRG 641 ==
LOC: ED 19:19 → 3A 06-21 04:20
PROVIDERS: ADMIT Hospitalist; ATTEND Internal Medicine
DX: E86.0 Dehydration (principal); J03.80 Acute tonsillitis due to other specified organisms; R55 Syncope and collapse; G40.909 Epilepsy, unspecified, not intractable, without status epilepticus; N92.0 Excessive and frequent menstruation with regular cycle; D50.9 Iron deficiency anemia, unspecified; Z88.8 Allergy status to other drugs, medicaments and biological substances; Z20.822 Contact with and (suspected) exposure to COVID-19
CPT/HCPCS: 36415; 70450; 70491; 80048; 80076; 80320; 84439; 84443; 84702; 85007; 85025; 85027; 85610; 87040; 87116; 87430; 93005; 94640; 94760; G0378; J3490; J7070; J7502; G0480; J0456; J1100; J1644; J1885; J1953; J2270; J7030; Q9967